=== PATIENT | female | born 1995 | race African-American/Black ===

== ENCOUNTER 2018-12-24 09:04 | Emergency (ER) | payer OTHER ==
[2018-12-24] MEDS: ACETAMINOPHEN 325 MG TAB PO (10:00)
== END 2018-12-24 10:58 | disposition home or self-care (01) ==
LOC: FTE 10:58
DX: K08.89 Other specified disorders of teeth and supporting structures (principal); F17.210 Nicotine dependence, cigarettes, uncomplicated
CPT/HCPCS: 99282; Z7502